=== PATIENT | female | born 1925 | race Caucasian/White ===

== ENCOUNTER 2016-06-10 13:40 | Emergency (ER) | payer OTHER ==
[~2016-06-10] VITALS: Ht 157.5 cm; Wt 77.3 kg
[~2016-06-10 13:40] MED LIST: ADULT LOW DOSE81 M1 PO; ASPIR 8181 M1 PO; ASPIR-LOW81 MG PO; ASPIRIN81 M2 PO; AZO CRANBERRY250 MG PO; BACTRIM,SEPT1 TABLET PO; BOOST PLUS237 ML PO; CIPRO500 MG PO; CLARISPRAY9.9 ML BOTH NARES; CLARITIN,ALAVAR10 MG PO; CLARITIN10 M3 PO; CRANBERRY TABL1 EACH PO; CYMBALTA20 MG PO; FERROUS SULFAT325 MG PO; GABAPENTIN100 MG PO; GAVISCON ES CH1 EACH PO; GAVISCON LIQUI355 ML PO; HYDROCODON-ACE1 EAC7 PO; IRON325 M1 PO; KEFLEX500 MG PO; LEVAQUIN500 MG PO; LIPITOR40 MG PO; LISINOPRIL-HCT1 EACH PO; LISINOPRIL10 MG PO; LOPRESSOR25 MG PO; LOPRESSOR50 MG; LOW DOSE ASPIRI81 M1; Lopressor PO; METOPROLOL TART25 MG PO; METOPROLOL TART50 MG PO; NICOTINE PATCH1 EAC1 TD; NITROSTAT0.4 MG SL; OCEAN NASAL 0.645 ML BOTH NARES; PANTOPRAZOLE SO40 MG PO; PLAVIX75 MG PO; PRINZIDE 10-121 EACH PO; PROTONIX40 MG PO; Plavix PO; Protonix PO; SENNA8.6 M1 PO; SENNA8.6 MG PO; TOPAMAX25 MG PO; TOPROL XL50 MG PO; TRAMADOL HCL50 MG PO; TUMS FRESHERS200 MG PO; TUMS500 MG PO; TYLENOL EXTRA500 MG PO; TYLENOL REGULA325 MG PO; Topamax PO; Zestoretic,Prinzide PO
[2016-06-10 15:47] LABS: HEMATOCRIT 42.4 % (36.0-46.0); MCH 30.9 PG (29.0-34.0); MCV 93.6 FL (83-99); MEAN PLAT.VOLUME 11.3 uM^3 (9.5-12.4); PLATELET COUNT 311 K/uL (156-360); RBC DIS.WIDTH-CV 12.9 % (11.8-14.6); RBC DIS.WIDTH-SD 42.8 % (39-53); RED BLOOD COUNT 4.53 M/uL (3.80-5.20); WHITE BLOOD COUNT 11.8 K/uL (4.1-10.2)
[2016-06-10 15:54] LABS: CHLORIDE 106 mEq/L (99-109); POTASSIUM 3.8 mEq/L (3.7-5.4); SODIUM 142 mEq/L (136-147)
[2016-06-10 15:56] LABS: GLUCOSE 112 mg/dL (70-99)
[2016-06-10 15:58] LABS: ANION GAP 10 MEQ/L (2-14); TOTAL BILIRUBIN 0.3 mg/dL (0.0-1.0)
[2016-06-10 16:00] LABS: ALKALINE PHOSPHATASE 89 IU/L (3-129); GFR ESTIMATE (CALCULATED) 50 mL/min/
[2016-06-10 16:01] LABS: UREA NITROGEN (BUN) 16 mg/dL (9-23)
[2016-06-10 17:43] LABS: ADD MIUA? YES; BILIRUBIN NEGATIVE; BLOOD NEGATIVE; COLOR YELLOW ((YELLOW)); GLUCOSE (STRIP) NEGATIVE; KETONES NEGATIVE; LEUKOCYTES LARGE; NITRITE POSITIVE; PROTEIN (STRIP) NEGATIVE; SPECIFIC GRAVITY 1.012 (1.000-1.030); UROBILINOGEN 0.2 MG/DL (0.2-1.0)
[2016-06-10 17:51] LABS: BACTERIA RARE /HPF; EPITHELIAL CELLS 3+ /HPF; MUCUS TRACE /LPF; UCUL ADDED? YES; WHITE BLOOD CELLS TNTC /HPF (0-5)
[2016-06-10] MEDS ORDERED: CIPRO500 MG PO (20:19)
[2016-06-10 20:41] VITALS: BP 127/65
== END 2016-06-10 20:43 | disposition home or self-care (01) ==
LOC: EME 13:40
DX: R19.7 Diarrhea, unspecified (principal); N39.0 Urinary tract infection, site not specified; R10.32 Left lower quadrant pain; I10 Essential (primary) hypertension; Z79.02 Long term (current) use of antithrombotics/antiplatelets; Z79.82 Long term (current) use of aspirin; F17.200 Nicotine dependence, unspecified, uncomplicated; Z95.5 Presence of coronary angioplasty implant and graft
CPT/HCPCS: 74176; 80053; 81003; 85027; 87077; 87086; 87186; 99281; 99283

== ENCOUNTER 2016-06-18 13:06 | Observation (INO) | payer OTHER ==
[~2016-06-18] VITALS: Ht 165.1 cm; Wt 78.4 kg
[2016-06-18 14:06] LABS: HEMATOCRIT 41.5 % (36.0-46.0); MCH 30.5 PG (29.0-34.0); MCHC 32.5 G/DL (30.0-36.0); MCV 93.9 FL (83-99); MEAN PLAT.VOLUME 11.3 uM^3 (9.5-12.4); PLATELET COUNT 325 K/uL (156-360); RBC DIS.WIDTH-CV 12.7 % (11.8-14.6); RBC DIS.WIDTH-SD 43.6 % (39-53); RED BLOOD COUNT 4.42 M/uL (3.80-5.20); WHITE BLOOD COUNT 14.3 K/uL (4.1-10.2)
[2016-06-18 14:16] LABS: CHLORIDE 105 mEq/L (99-109); POTASSIUM 4.1 mEq/L (3.7-5.4); SODIUM 140 mEq/L (136-147)
[2016-06-18 14:18] LABS: GLUCOSE 120 mg/dL (70-99)
[2016-06-18 14:19] LABS: ANION GAP 11 MEQ/L (2-14)
[2016-06-18 14:21] LABS: GFR ESTIMATE (CALCULATED) > 59 mL/min/
[2016-06-18 14:22] LABS: UREA NITROGEN (BUN) 11 mg/dL (9-23)
[2016-06-18 14:30] LABS: TROP-I INTERPRETATION NEGATIVE; TROPONIN-I < 0.01 ng/mL (0.0-0.30)
[2016-06-18] MEDS ORDERED: TYLENOL REGULA325 MG PO (17:59)
[2016-06-18] MEDS ORDERED: MICRO-K10 ME2 PO (18:00)
[2016-06-18] MEDS ORDERED: LASIX20 MG PO (18:00)
[2016-06-18] MEDS ORDERED: CIPRO500 MG PO (18:05)
[2016-06-18 20:58] LABS: TROP-I INTERPRETATION NEGATIVE; TROPONIN-I < 0.01 ng/mL (0.0-0.30)
[2016-06-18 21:37] VITALS: BP 166/67
[2016-06-18 22:21] LABS: D-DIMER ELISA > 4.00 mg/L FEU (< 0.57)
[2016-06-19] VITALS: BP 132/86
[2016-06-19 03:36] LABS: TROP-I INTERPRETATION NEGATIVE; TROPONIN-I 0.01 ng/mL (0.0-0.30)
[2016-06-19 04:00] VITALS: BP 123/58
[2016-06-19 06:46] LABS: HEMATOCRIT 35.3 % (36.0-46.0); MCH 31.2 PG (29.0-34.0); MCHC 33.1 G/DL (30.0-36.0); MCV 94.1 FL (83-99); MEAN PLAT.VOLUME 11.9 uM^3 (9.5-12.4); PLATELET COUNT 285 K/uL (156-360); RBC DIS.WIDTH-CV 12.8 % (11.8-14.6); RBC DIS.WIDTH-SD 44.4 % (39-53); RED BLOOD COUNT 3.75 M/uL (3.80-5.20); WHITE BLOOD COUNT 10.8 K/uL (4.1-10.2)
[2016-06-19 07:11] LABS: ANION GAP 9 MEQ/L (2-14); CHLORIDE 106 MEQ/L (99-109); GFR ESTIMATE (CALCULATED) > 59 mL/min/; GLUCOSE 103 mg/dL (70-99); POTASSIUM 3.8 MEQ/L (3.7-5.4); SAMPLE HEMOLYSIS CHECK 0; SAMPLE ICTERIC CHECK 0; SAMPLE LIPEMIA CHECK 0; SODIUM 141 MEQ/L (136-147); UREA NITROGEN (BUN) 12 mg/dL (9-23)
[2016-06-19 09:01] VITALS: BP 135/61
[2016-06-19 09:10] LABS: METH RESISTANT S AUREUS PCR NEGATIVE (NEGATIVE)
[2016-06-19 09:12] LABS: PROBE CHECK PASS; SPECIMEN PROCESSING CONTROL PASS
[2016-06-19 12:29] VITALS: BP 126/58
[2016-06-19] MEDS ORDERED: VENTOLIN HFA18 GM IH (13:27)
== END 2016-06-19 15:47 | disposition home or self-care (01) ==
LOC: EME 13:06 → EDOF 17:49 → 5WEST 17:49 → EDOF 17:49 → 5WEST 20:57
PROVIDERS: Hospitalist; Internal Medicine
DX: R07.81 Pleurodynia (principal); J98.11 Atelectasis; N39.0 Urinary tract infection, site not specified; R06.02 Shortness of breath; I10 Essential (primary) hypertension; E87.1 Hypo-osmolality and hyponatremia; I25.10 Atherosclerotic heart disease of native coronary artery without angina pectoris; Z95.1 Presence of aortocoronary bypass graft; I25.2 Old myocardial infarction; Z86.73 Personal history of transient ischemic attack (TIA), and cerebral infarction without residual deficits; E78.5 Hyperlipidemia, unspecified; J43.9 Emphysema, unspecified; F17.210 Nicotine dependence, cigarettes, uncomplicated
CPT/HCPCS: 71020; 74020; 78582; 80048; 84484; 85027; 85379; 87641; 93005; 93970; 94799; 99202; 99281; 99285; A9540; A9567; G0378; J1650

== ENCOUNTER 2016-11-03 12:17 | Inpatient (IN) | payer OTHER ==
[~2016-11-03] VITALS: Ht 165.1 cm; Wt 73.2 kg
[~2016-11-03 12:17] MED LIST changes: +LASIX20 MG PO; +MICRO-K10 ME2 PO; +VENTOLIN HFA18 GM IH
[2016-11-03 13:11] LABS: ADD MIUA? NO; BILIRUBIN NEGATIVE; BLOOD NEGATIVE; COLOR YELLOW ((YELLOW)); GLUCOSE (STRIP) NEGATIVE; KETONES NEGATIVE; LEUKOCYTES NEGATIVE; NITRITE NEGATIVE; PROTEIN (STRIP) NEGATIVE; SPECIFIC GRAVITY 1.013 (1.000-1.030); UCUL ADDED? NO; UROBILINOGEN 0.2 MG/DL (0.2-1.0)
[2016-11-03 13:59] LABS: BASOPHIL COUNT 0.1 K/uL (0-0.1); EOSINOPHIL (%) 0.1 % (0-5); HEMATOCRIT 37.1 % (36.0-46.0); IMMATURE GRANULOCYTE (%) 0.6 % (0.0-0.7); IMMATURE GRANULOCYTE COUNT 0.1 K/uL; INSTRUMENT ABS NEUTROPHIL CT 17.5 K/uL; LYMPHOCYTE COUNT 1.5 K/uL (1.0-2.8); MCH 30.8 PG (29.0-34.0); MCHC 33.4 G/DL (30.0-36.0); MCV 92.3 FL (83-99); MEAN PLAT.VOLUME 11.2 uM^3 (9.5-12.4); MONOCYTE COUNT 1.2 K/uL (0-0.8); NEUTROPHIL (%) 85.9 % (45-76); NEUTROPHIL COUNT 17.5 K/uL (1.8-6.4); PLATELET COUNT 273 K/uL (156-360); RBC DIS.WIDTH-CV 13.3 % (11.8-14.6); RBC DIS.WIDTH-SD 45.4 % (39-53); RED BLOOD COUNT 4.02 M/uL (3.80-5.20); WHITE BLOOD COUNT 20.3 K/uL (4.1-10.2)
[2016-11-03 14:07] LABS: INTER. NORMALIZED RATIO 1.2; PROTHROMBIN TIME 12.9 SEC (10.2-12.9)
[2016-11-03 14:20] LABS: TROP-I INTERPRETATION NEGATIVE; TROPONIN-I 0.01 ng/mL (0.0-0.30)
[2016-11-03 18:01] LABS: CHLORIDE 104 mEq/L (99-109); POTASSIUM 3.9 mEq/L (3.7-5.4); SODIUM 139 mEq/L (136-147)
[2016-11-03 18:03] LABS: GLUCOSE 119 mg/dL (70-99)
[2016-11-03 18:05] LABS: ANION GAP 13 MEQ/L (2-14); TOTAL BILIRUBIN 0.6 mg/dL (0.0-1.0)
[2016-11-03 18:07] LABS: ALKALINE PHOSPHATASE 95 IU/L (3-129); GFR ESTIMATE (CALCULATED) > 59 mL/min/
[2016-11-03 18:08] LABS: UREA NITROGEN (BUN) 10 mg/dL (9-23)
[2016-11-03] MEDS ORDERED: TYLENOL EXTRA500 MG PO (19:40)
[2016-11-03] MEDS ORDERED: CREON 241 CAPSULE PO (19:43)
[2016-11-03 21:08] LABS: TROP-I INTERPRETATION NEGATIVE; TROPONIN-I < 0.01 ng/mL (0.0-0.30)
[2016-11-03 21:26] VITALS: BP 139/61
[2016-11-03 23:30] VITALS: BP 113/62
[2016-11-04 02:43] LABS: TROP-I INTERPRETATION NEGATIVE; TROPONIN-I 0.01 ng/mL (0.0-0.30)
[2016-11-04 06:46] LABS: ANION GAP 9 MEQ/L (2-14); CHLORIDE 107 MEQ/L (99-109); GFR ESTIMATE (CALCULATED) > 59 mL/min/; GLUCOSE 98 mg/dL (70-99); POTASSIUM 3.5 MEQ/L (3.7-5.4); SAMPLE HEMOLYSIS CHECK 0; SAMPLE ICTERIC CHECK 0; SAMPLE LIPEMIA CHECK 0; SODIUM 143 MEQ/L (136-147); UREA NITROGEN (BUN) 8 mg/dL (9-23)
[2016-11-04 08:32] LABS: HEMATOCRIT 36.1 % (36.0-46.0); MCHC 32.7 G/DL (30.0-36.0); MCV 94.8 FL (83-99); MEAN PLAT.VOLUME 11.1 uM^3 (9.5-12.4); PLATELET COUNT 244 K/uL (156-360); RBC DIS.WIDTH-CV 13.6 % (11.8-14.6); RBC DIS.WIDTH-SD 47.8 % (39-53); RED BLOOD COUNT 3.81 M/uL (3.80-5.20); WHITE BLOOD COUNT 13.7 K/uL (4.1-10.2)
[2016-11-04 08:36] VITALS: BP 126/60
[2016-11-04 16:31] VITALS: BP 139/61
[2016-11-04 23:40] VITALS: BP 136/63
[2016-11-05 07:57] VITALS: BP 133/62
[2016-11-05 16:16] VITALS: BP 136/70
[2016-11-06 00:45] VITALS: BP 159/70
[2016-11-06 04:16] VITALS: BP 120/57
[2016-11-06 08:00] VITALS: BP 118/57
[2016-11-06] MEDS ORDERED: LEVAQUIN750 MG PO (10:35)
[2016-11-06] MEDS ORDERED: MUCINEX DM ER1 EACH PO (10:37)
[2016-11-06] MEDS ORDERED: CEPACOL SORE T1 EAC9 MM (10:37)
== END 2016-11-06 15:27 | disposition home or self-care (01) | DRG 871 ==
LOC: EME 12:17 → 5EAST 16:03 → EDOF 16:03 → ENRESERV 16:04 → 5EAST 21:04
PROVIDERS: Emergency Medicine; Hospitalist; Internal Medicine
DX: A41.9 Sepsis, unspecified organism (principal); J13 Pneumonia due to Streptococcus pneumoniae; J15.1 Pneumonia due to Pseudomonas; E87.1 Hypo-osmolality and hyponatremia; R65.20 Severe sepsis without septic shock; I50.9 Heart failure, unspecified; I34.1 Nonrheumatic mitral (valve) prolapse; K21.9 Gastro-esophageal reflux disease without esophagitis; R09.02 Hypoxemia; I25.10 Atherosclerotic heart disease of native coronary artery without angina pectoris; I11.0 Hypertensive heart disease with heart failure; F17.210 Nicotine dependence, cigarettes, uncomplicated; I65.22 Occlusion and stenosis of left carotid artery; Z88.5 Allergy status to narcotic agent; Z87.442 Personal history of urinary calculi; Z87.440 Personal history of urinary (tract) infections; I25.2 Old myocardial infarction; Z95.5 Presence of coronary angioplasty implant and graft; Z86.73 Personal history of transient ischemic attack (TIA), and cerebral infarction without residual deficits; Z82.49 Family history of ischemic heart disease and other diseases of the circulatory system; Z83.3 Family history of diabetes mellitus
CPT/HCPCS: 71010; 80048; 80053; 81003; 83605; 84484; 85025; 85027; 85610; 85730; 87040; 87070; 87077; 87181; 87186; 87205; 92610 GN; 93005; 94640; 94799; 99202; 99281; 99285; J0456; J0696; J1644; J2543; J7030; J7050; S0028

== ENCOUNTER 2017-03-04 16:22 | Observation (INO) | payer OTHER ==
[~2017-03-04] VITALS: Ht 165.1 cm; Wt 71.3 kg
[~2017-03-04 16:22] MED LIST changes: +CEPACOL SORE T1 EAC9 MM; +CREON 241 CAPSULE PO; +LEVAQUIN750 MG PO; +MUCINEX DM ER1 EACH PO
[2017-03-04 17:27] LABS: BASOPHIL COUNT 0.1 K/uL (0-0.1); EOSINOPHIL (%) 2.7 % (0-5); EOSINOPHIL COUNT 0.2 K/uL (0-0.3); HEMATOCRIT 39.9 % (36.0-46.0); IMMATURE GRANULOCYTE (%) 0.3 % (0.0-0.7); INSTRUMENT ABS NEUTROPHIL CT 6.4 K/uL; LYMPHOCYTE COUNT 1.8 K/uL (1.0-2.8); MCH 31.1 PG (29.0-34.0); MCHC 33.3 G/DL (30.0-36.0); MCV 93.2 FL (83-99); MEAN PLAT.VOLUME 10.7 uM^3 (9.5-12.4); MONOCYTE (%) 4.7 % (3-12); MONOCYTE COUNT 0.4 K/uL (0-0.8); NEUTROPHIL (%) 71.2 % (45-76); NEUTROPHIL COUNT 6.4 K/uL (1.8-6.4); PLATELET COUNT 326 K/uL (156-360); RBC DIS.WIDTH-CV 13.1 % (11.8-14.6); RBC DIS.WIDTH-SD 44.5 % (39-53); RED BLOOD COUNT 4.28 M/uL (3.80-5.20)
[2017-03-04 17:35] LABS: CHLORIDE 102 mEq/L (99-109); INTER. NORMALIZED RATIO 1.1; POTASSIUM 3.4 mEq/L (3.7-5.4); PROTHROMBIN TIME 12.4 SEC (10.2-12.9); SODIUM 139 mEq/L (136-147)
[2017-03-04 17:37] LABS: PTT 26.1 SEC (25-37)
[2017-03-04 17:38] LABS: GLUCOSE 172 mg/dL (70-99)
[2017-03-04 17:39] LABS: ANION GAP 11 MEQ/L (2-14)
[2017-03-04 17:40] LABS: TOTAL BILIRUBIN 0.4 mg/dL (0.0-1.0)
[2017-03-04 17:41] LABS: ALKALINE PHOSPHATASE 108 IU/L (3-129)
[2017-03-04 17:42] LABS: GFR ESTIMATE (CALCULATED) 55 mL/min/
[2017-03-04 17:43] LABS: DIRECT BILIRUBIN 0.1 mg/dL (0.0-0.3); UREA NITROGEN (BUN) 15 mg/dL (9-23)
[2017-03-04 17:48] LABS: TROP-I INTERPRETATION NEGATIVE; TROPONIN-I < 0.01 ng/mL (0.0-0.30)
[2017-03-04 20:23] LABS: ADD MIUA? YES; BILIRUBIN NEGATIVE; BLOOD NEGATIVE; GLUCOSE (STRIP) NEGATIVE; KETONES NEGATIVE; LEUKOCYTES TRACE; NITRITE NEGATIVE; PROTEIN (STRIP) NEGATIVE; SPECIFIC GRAVITY 1.013 (1.000-1.030); UROBILINOGEN 0.2 MG/DL (0.2-1.0)
[2017-03-04 20:24] LABS: COLOR LT YELLOW ((YELLOW))
[2017-03-04 20:32] LABS: BACTERIA NONE SEEN /HPF; EPITHELIAL CELLS RARE /HPF; MUCUS NONE SEEN /LPF; RED BLOOD CELLS 0-5 /HPF (0-5); UCUL ADDED? YES
[2017-03-04 20:55] VITALS: BP 120/62
[2017-03-04 23:33] VITALS: BP 142/64
[2017-03-05 03:41] VITALS: BP 156/67
[2017-03-05 04:51] LABS: BASOPHIL COUNT 0.1 K/uL (0-0.1); EOSINOPHIL (%) 3.6 % (0-5); EOSINOPHIL COUNT 0.4 K/uL (0-0.3); IMMATURE GRANULOCYTE (%) 0.5 % (0.0-0.7); IMMATURE GRANULOCYTE COUNT 0.1 K/uL; INSTRUMENT ABS NEUTROPHIL CT 5.5 K/uL; LYMPHOCYTE COUNT 3.3 K/uL (1.0-2.8); MCH 31.1 PG (29.0-34.0); MCHC 34.4 G/DL (30.0-36.0); MCV 90.2 FL (83-99); MEAN PLAT.VOLUME 10.8 uM^3 (9.5-12.4); MONOCYTE (%) 6.5 % (3-12); MONOCYTE COUNT 0.7 K/uL (0-0.8); NEUTROPHIL (%) 55.2 % (45-76); NEUTROPHIL COUNT 5.5 K/uL (1.8-6.4); NRBC (%) 0.5 /100 WBC (0-0); PLATELET COUNT 295 K/uL (156-360); RBC DIS.WIDTH-SD 42.9 % (39-53); RED BLOOD COUNT 3.99 M/uL (3.80-5.20)
[2017-03-05 04:55] LABS: CHLORIDE 106 mEq/L (99-109); SODIUM 136 mEq/L (136-147)
[2017-03-05 04:56] LABS: POTASSIUM 4.1 mEq/L (3.7-5.4)
[2017-03-05 04:57] LABS: GLUCOSE 101 mg/dL (70-99)
[2017-03-05 04:58] LABS: ANION GAP 9 MEQ/L (2-14)
[2017-03-05 05:00] LABS: GFR ESTIMATE (CALCULATED) > 59 mL/min/
[2017-03-05 05:01] LABS: UREA NITROGEN (BUN) 11 mg/dL (9-23)
[2017-03-05 10:41] VITALS: BP 118/56
[2017-03-05 11:07] LABS: TROP-I INTERPRETATION NEGATIVE; TROPONIN-I < 0.01 ng/mL (0.0-0.30)
[2017-03-05 15:24] VITALS: BP 125/63; BP 138/62
[2017-03-05 15:25] VITALS: BP 125/60
[2017-03-05 16:03] VITALS: BP 132/65
== END 2017-03-05 16:35 | disposition home or self-care (01) ==
LOC: EME → EDBD 16:22 → EDOF 19:32 → 5WEST 19:32 → ENRESERV 19:34 → 5WEST 20:49 → ENPENDDIS 03-05 → 5WEST 03-05 16:35
PROVIDERS: Emergency Medicine; Internal Medicine; Physician Assistant
DX: I95.9 Hypotension, unspecified (principal); I25.10 Atherosclerotic heart disease of native coronary artery without angina pectoris; Z95.5 Presence of coronary angioplasty implant and graft; I25.2 Old myocardial infarction; E78.5 Hyperlipidemia, unspecified; K21.9 Gastro-esophageal reflux disease without esophagitis; Z86.73 Personal history of transient ischemic attack (TIA), and cerebral infarction without residual deficits; Z87.440 Personal history of urinary (tract) infections; I10 Essential (primary) hypertension; F32.9 Major depressive disorder, single episode, unspecified; E86.0 Dehydration; Z79.82 Long term (current) use of aspirin; Z79.02 Long term (current) use of antithrombotics/antiplatelets; I65.29 Occlusion and stenosis of unspecified carotid artery; Z98.890 Other specified postprocedural states; E87.1 Hypo-osmolality and hyponatremia; Z90.49 Acquired absence of other specified parts of digestive tract; Z82.49 Family history of ischemic heart disease and other diseases of the circulatory system; Z83.3 Family history of diabetes mellitus; Z88.5 Allergy status to narcotic agent; Z91.018 Allergy to other foods
CPT/HCPCS: 70450; 71020; 80048; 80076; 81003; 83605; 83880; 84484; 85025; 85610; 85730; 87077; 87086; 87186; 93005; 93306; 99281; 99285; G0378; J1650; J7030

== ENCOUNTER 2017-05-31 13:01 | Observation (INO) | payer OTHER ==
[~2017-05-31] VITALS: Ht 165.1 cm; Wt 71.5 kg
[~2017-05-31 13:01] MED LIST changes: -GAVISCON ES CH1 EACH PO
[2017-05-31 14:01] LABS: HEMATOCRIT 37.1 % (36.0-46.0); HEMOGLOBIN 12.6 G/DL (11.9-15.5); MCH 31.4 PG (29.0-34.0); MCV 92.5 FL (83-99); PLATELET COUNT 350 K/uL (156-360); RBC DIS.WIDTH-CV 12.3 % (11.8-14.6); RBC DIS.WIDTH-SD 42.1 % (39-53); RED BLOOD COUNT 4.01 M/uL (3.80-5.20); WHITE BLOOD COUNT 8.2 K/uL (4.1-10.2)
[2017-05-31 14:22] LABS: CHLORIDE 102 MEQ/L (99-109); POTASSIUM 4.2 MEQ/L (3.7-5.4); SODIUM 136 MEQ/L (136-147)
[2017-05-31 14:27] LABS: CREATININE 0.8 MG/DL (0.6-1.3); GFR ESTIMATE (CALCULATED) > 59 mL/min/; GLUCOSE 107 mg/dL (70-99); TROP-I INTERPRETATION NEGATIVE; TROPONIN-I < 0.01 ng/mL (0.0-0.30); UREA NITROGEN (BUN) 10 mg/dL (9-23)
[2017-05-31 17:06] LABS: APPEARANCE SL.HAZY ((CLEAR)); BILIRUBIN NEGATIVE; BLOOD NEGATIVE; COLOR YELLOW ((YELLOW)); GLUCOSE (STRIP) NEGATIVE; KETONES NEGATIVE; LEUKOCYTES LARGE; NITRITE NEGATIVE; PROTEIN (STRIP) NEGATIVE; SPECIFIC GRAVITY 1.021 (1.000-1.030); UROBILINOGEN 0.2 MG/DL (0.2-1.0)
[2017-05-31 17:13] LABS: BACTERIA RARE /HPF; EPITHELIAL CELLS 2+ /HPF; MUCUS 1+ /LPF; RED BLOOD CELLS 0-5 /HPF (0-5); WHITE BLOOD CELLS TNTC /HPF (0-5)
[2017-05-31 17:36] LABS: THYROTROPIN (TSH) 4.5 MIU/L (0.4-5.5)
[2017-05-31] MEDS ORDERED: MICRO-K10 ME2 PO (19:12)
[2017-05-31] MEDS ORDERED: AMITRIPTYLINE H10 MG PO (19:16)
[2017-05-31] MEDS ORDERED: PANTOPRAZOLE SO40 MG PO (19:16)
[2017-05-31] MEDS ORDERED: DOXEPIN HCL10 MG PO (19:17)
[2017-05-31] MEDS ORDERED: GABAPENTIN100 MG PO (19:17)
[2017-05-31] MEDS ORDERED: ATORVASTATIN CA40 MG PO (19:17)
[2017-05-31] MEDS ORDERED: FUROSEMIDE20 MG PO (19:17)
[2017-05-31] MEDS ORDERED: CLOPIDOGREL75 MG PO (19:17)
[2017-05-31 19:52] LABS: TROP-I INTERPRETATION NEGATIVE; TROPONIN-I < 0.01 ng/mL (0.0-0.30)
[2017-05-31 19:59] LABS: HDL CHOLESTEROL 34 MG/DL (Desirable>=50); LDL CHOLESTEROL 41 mg/dL (Desirable<100); NON-HDL CHOLESTEROL 62 mg/dL (Desirable<160); TOTAL CHOLESTEROL 96 mg/dL (Desirable<200); TRIGLYCERIDES 103 MG/DL (Normal: <150)
[2017-05-31 20:48] VITALS: BP 118/57
[2017-05-31 23:14] VITALS: BP 127/66
[2017-06-01 02:23] LABS: TROP-I INTERPRETATION NEGATIVE; TROPONIN-I 0.01 ng/mL (0.0-0.30)
[2017-06-01 04:30] VITALS: BP 101/56
[2017-06-01 07:22] VITALS: BP 115/56
[2017-06-01 09:21] LABS: LYME DISEASE SEROLOGY SCREEN NEGATIVE (NEGATIVE)
[2017-06-01 10:00] LABS: HEMOGLOBIN A1c (GLYCOHEMOGLOB) 6.2 % (Below 5.7)
[2017-06-01 11:55] VITALS: BP 112/58
[2017-06-01 13:42] VITALS: BP 99/68
[2017-06-01 16:25] VITALS: BP 142/65
== END 2017-06-01 18:08 | disposition home or self-care (01) ==
LOC: EME 13:01 → EDOF 18:53 → 5WEST 18:53 → EDOF 18:53 → ENRESERV 18:57 → 5WEST 20:28
PROVIDERS: Physician Assistant; Physician Assistant Medical
DX: R07.89 Other chest pain (principal); R20.2 Paresthesia of skin; I25.10 Atherosclerotic heart disease of native coronary artery without angina pectoris; I25.2 Old myocardial infarction; Z86.73 Personal history of transient ischemic attack (TIA), and cerebral infarction without residual deficits; Z95.5 Presence of coronary angioplasty implant and graft; I65.21 Occlusion and stenosis of right carotid artery; I65.02 Occlusion and stenosis of left vertebral artery; Z98.890 Other specified postprocedural states; F17.210 Nicotine dependence, cigarettes, uncomplicated; I10 Essential (primary) hypertension; E78.5 Hyperlipidemia, unspecified; Z87.440 Personal history of urinary (tract) infections; Z82.49 Family history of ischemic heart disease and other diseases of the circulatory system; Z83.3 Family history of diabetes mellitus; Z90.49 Acquired absence of other specified parts of digestive tract; Z88.5 Allergy status to narcotic agent
CPT/HCPCS: 70450; 71046; 80048; 80061; 81003; 82607; 83036; 84443; 84484; 85027; 86618; 87077; 87086; 87186; 87641; 93005; 93880; 94799; 99281; 99285; G0378; J0696; J1644